=== PATIENT | female | born 1995 | race African-American/Black ===

== ENCOUNTER 2022-06-23 17:29 | Emergency (ER) | payer MEDICAID ==
[2022-06-23 17:43] VITALS: BP 127/83
[2022-06-23 17:45] VITALS: BP 119/76
[2022-06-23 18:16] VITALS: BP 119/76
== END 2022-06-23 17:55 | disposition left against medical advice (07) ==
LOC: ED 17:29
DX: O47.03 False labor before 37 completed weeks of gestation, third trimester (principal); Z3A.32 32 weeks gestation of pregnancy

== ENCOUNTER 2023-03-24 02:48 | Emergency (ER) | payer MEDICAID ==
[2023-03-24] VITALS (11 sets, daily range): BP systolic 105–134; BP diastolic 73–98
[2023-03-24 03:22] LABS: URINE BILIRUBIN - DIPSTICK NEGATIVE (NEGATIVE); URINE BLOOD DIPSTICK NEGATIVE (NEGATIVE); URINE COLOR YELLOW; URINE GLUCOSE - DIPSTICK NEGATIVE (NEGATIVE); URINE KETONE NEGATIVE (NEGATIVE); URINE LEUK ESTERASE NEGATIVE (NEGATIVE); URINE NITRITE - DIPSTICK NEGATIVE (Negative); URINE PH 6.5 (4.5-8.0); URINE PROTEIN - DIPSTICK NEGATIVE (NEG-TRACE)
[2023-03-24 04:03] LABS: BASO% 0.6 % (0-3); EOS% 4.7 % (0-8); HEMATOCRIT 37.5 % (37.0-47.0); HEMOGLOBIN 11.9 g/dl (12.0-16.0); IMMATURE GRANULOCYTES 0.4 % (0.0-5.0); LYMPH% 40.2 % (15-41); MEAN CELL VOLUME 81.7 fL CALC (80.0-100.0); MEAN CORPUSCULAR HGB 25.9 pG CALC (26.0-32.0); MEAN CORPUSCULAR HGB CONC 31.7 g/dL CAL (32.0-36.0); MONO% 6.9 % (2-13); NEUT# 4.27 thou/uL (2.00-7.15); NEUT% 47.2 % (42-76); RED BLOOD COUNT 4.59 mill/uL (4.20-5.60); RED CELL DISTRI WIDTH 14.3 % (11.5-15.5)
[2023-03-24 04:19] LABS: ALBUMIN 4.3 g/dL (3.2-5.0); ALKALINE PHOSPHATASE 75 u/l (38-126); ANION GAP 12 (6-22 (CALC)); BILIRUBIN, TOTAL 0.1 mg/dL (0.02-1.3); BUN 9 mg/dL (7-17); BUN/CREATININE RATIO 14 (12-20 (CALC)); CARBON DIOXIDE 28 mmol/l (22-30); CHLORIDE 104 mmol/l (95-108); CREATININE 0.7 mg/dL (0.5-1.0); GFR FOR AFR.AMER. > 60 ML/MIN (>=60 (CALC)); GFR OTHER RACES > 60 ML/MIN (>=60 (CALC)); MAGNESIUM 1.6 mg/dL (1.6-2.3); PROTHROMBIN TIME 10.2 SECONDS (9.0-12.5); SGOT/AST 22 u/l (14-36); SODIUM 141 mmol/l (137-146); TOTAL PROTEIN 6.9 g/dL (6.3-8.2)
[2023-03-24 04:22] LABS: D-DIMER 0.17 mg/L (0.19-0.60)
== END 2023-03-24 05:51 | disposition home or self-care (01) ==
LOC: ED 02:48
PROVIDERS: Emergency Medicine
DX: F41.8 Other specified anxiety disorders (principal)